=== PATIENT | male | born 1980 | race Caucasian/White ===

== ENCOUNTER 2017-09-11 19:08 | Emergency (ER) | payer OTHER ==
[~2017-09-11] VITALS: Ht 170.2 cm; Wt 95.2 kg
[~2017-09-11 19:08] MED LIST: PENVK500 PO
[2017-09-11] MEDS ORDERED: METF500 PO (19:23)
[2017-09-11] MEDS ORDERED: ASPI81CH PO (19:23)
[2017-09-11] MEDS ORDERED: LATUDA40 MG PO (19:23)
[2017-09-11] MEDS ORDERED: Cheratussin AC118 ML PO (20:22)
[2017-09-11] MEDS ORDERED: BENZ100A PO (20:22)
[2017-09-11] MEDS ORDERED: ALBU90OI INH (20:22)
== END 2017-09-11 20:27 | disposition home or self-care (01) ==
LOC: ER 19:08
DX: R05 Cough (principal); R73.03 Prediabetes; F31.9 Bipolar disorder, unspecified; Z88.0 Allergy status to penicillin; Z79.82 Long term (current) use of aspirin; Z79.899 Other long term (current) drug therapy; Z79.84 Long term (current) use of oral hypoglycemic drugs
CPT/HCPCS: 71046; 99284

== ENCOUNTER 2021-02-07 11:56 | Emergency (ER) | payer OTHER ==
[~2021-02-07] VITALS: Ht 167.6 cm; Wt 83.5 kg
[~2021-02-07 11:56] MED LIST changes: +ALBU90OI INH; +ASPI81CH PO; +BENZ100A PO; +Cheratussin AC118 ML PO; +LATUDA40 MG PO; +METF500 PO
[2021-02-07] MEDS ORDERED: KETO10 PO (14:01)
== END 2021-02-07 14:10 | disposition home or self-care (01) ==
LOC: ER 11:56
DX: S63.501A Unspecified sprain of right wrist, initial encounter (principal); R73.03 Prediabetes; Z79.84 Long term (current) use of oral hypoglycemic drugs; Z79.82 Long term (current) use of aspirin; Z79.899 Other long term (current) drug therapy; W01.0XXA Fall on same level from slipping, tripping and stumbling without subsequent striking against object, initial encounter; Y93.01 Activity, walking, marching and hiking; Y92.828 Other wilderness area as the place of occurrence of the external cause
CPT/HCPCS: 73110; 99283-25